=== PATIENT | male | born 1975 | race Caucasian/White ===

== ENCOUNTER 2023-02-04 10:21 | Inpatient (IN) ==
[2023-02-04] MEDS ORDERED: Tetan/Diph/Pertus SYR(Tdap) 0.5 ML SYR(BOOSTRIX) use SYR contains LATEX IM ONE (10:50)
[2023-02-04] MEDS ORDERED: Morphine 4 MG/ML VIAL (1 ml) IV ONE (10:50)
[2023-02-04] MEDS ORDERED: Buprenorp/Nalox 8-2 MG FILM SL ONE (11:04)
[2023-02-04] MEDS ORDERED: Vancomycin 1,500 MG in NS 0.9% 250 ml 250 ML IVPB ONE (13:48)
[2023-02-04] MEDS ORDERED: Lactated Ringers 1000 ml BAG 1,000 ML IV SCH (14:00)
[2023-02-04 15:02] LABS: ABS Basophils 0.1 10^3/uL (0.0-0.1); ABS Eosinophils 0.2 10^3/uL (0.0-0.5); ABS Lymphocytes 3.1 10^3/uL (1.0-4.8); ABS Monocytes 1.2 10^3/uL (0.0-1.1); ABS Neutrophils 5.4 10^3/uL (1.5-7.6); ABS Nucleated RBC 0.01 10^3/ul; Eosinophil % 1.8 %; Hematocrit 38.4 % (38-53); Hemoglobin 12.9 g/dL (13.2-16.3); Mean Corpuscular Hemoglobin 30.8 pg (27-33); Mean Corpuscular Hgb Conc 33.5 g/dL (31-36); Mean Corpuscular Volume 91.9 fL (80-97); Mean Platelet Volume 7.5 fL (7.5-11.2); Nucleated Red Blood Cells % 0.1 %/100WBC (0.0-0.8); Platelet Count 281 10^3/uL (150-450); Red Blood Count 4.18 10^6/uL (4.06-5.63); Red Cell Distribution Width 13.2 % (12-17); White Blood Count 9.9 10^3/uL (3.6-10.2)
[2023-02-04 15:20] LABS: Albumin 3.6 g/dL (3.2-5.2); Albumin/Globulin Ratio 1.3 (1-3); C Reactive Protein 84.73 mg/L (<8.01); Calcium 8.5 mg/dL (8.6-10.3); Creatinine, Serum 0.76 mg/dL (0.67-1.17); Globulin 2.7 g/dL (2-4); Potassium 4.3 mmol/L (3.5-5.0); Total Bilirubin 0.3 mg/dL (0.2-1.0); Total Protein 6.3 g/dL (6.4-8.9)
[2023-02-04] MEDS ORDERED: Silver Sulfadiazine 1% 400gm JAR TOPICAL ONE (15:50)
[2023-02-04 16:22] LABS: HIV 4th Generation Nonreactive (Nonreactive)
[2023-02-04] MEDS ORDERED: Vancomycin per Pharmacy 1 EA NOTE FOLLOW UP SCH (17:00)
[2023-02-04] MEDS ORDERED: Silver Sulfadiazine 1% 20 gm TUBE TOPICAL ONE (17:30)
[2023-02-04 17:39] LABS: Erythrocyte Sed Rate 21 mm/Hr (0-14)
[2023-02-04] MEDS: Buprenorp/Nalox 8-2 MG FILM SL SCH (17:42)
[2023-02-04] MEDS: Lactated Ringers 1000 ml BAG 1,000 ML IV SCH (17:43)
[2023-02-04] MEDS: Enoxaparin 40 MG/0.4 ML SYR SUBCUT SCH (18:32)
[2023-02-04 21:14] LABS: Hepatitis C Antibody Negative (Negative)
[2023-02-04] MEDS: Vancomycin 1000 MG in NS 0.9% 250 ML IVPB SCH (22:00)
[2023-02-05] MEDS: Lactated Ringers 1000 ml BAG 1,000 ML IV SCH (03:11)
[2023-02-05] MEDS: Vancomycin 1000 MG in NS 0.9% 250 ML IVPB SCH (06:19)
[2023-02-05 07:50] LABS: ABS Eosinophils 0.2 10^3/uL (0.0-0.5); ABS Lymphocytes 2.8 10^3/uL (1.0-4.8); ABS Monocytes 1.1 10^3/uL (0.0-1.1); ABS Neutrophils 5.5 10^3/uL (1.5-7.6); Eosinophil % 2.1 %; Hematocrit 38.7 % (38-53); Hemoglobin 12.8 g/dL (13.2-16.3); Lymphocyte % 28.9 %; Mean Corpuscular Hemoglobin 30.6 pg (27-33); Mean Corpuscular Hgb Conc 33.2 g/dL (31-36); Mean Corpuscular Volume 92.4 fL (80-97); Mean Platelet Volume 7.7 fL (7.5-11.2); Platelet Count 253 10^3/uL (150-450); Red Blood Count 4.18 10^6/uL (4.06-5.63); Red Cell Distribution Width 13.5 % (12-17); White Blood Count 9.6 10^3/uL (3.6-10.2)
[2023-02-05 08:08] LABS: Calcium 8.2 mg/dL (8.6-10.3); Creatinine, Serum 0.86 mg/dL (0.67-1.17); Magnesium 1.8 mg/dL (1.9-2.7); Potassium 4.3 mmol/L (3.5-5.0); eGFR CKD-EPI 108.8 (>60)
[2023-02-05] MEDS: Buprenorp/Nalox 8-2 MG FILM SL SCH (08:36)
[2023-02-05] MEDS ORDERED: Vancomycin Trough Check NOTE FOLLOW UP ONE (14:30)
[2023-02-05] MEDS: Enoxaparin 40 MG/0.4 ML SYR SUBCUT SCH (17:27)
[2023-02-06 06:47] LABS: Albumin 3.5 g/dL (3.2-5.2); Albumin/Globulin Ratio 1.3 (1-3); Calcium 8.7 mg/dL (8.6-10.3); Creatinine, Serum 0.87 mg/dL (0.67-1.17); Globulin 2.7 g/dL (2-4); Magnesium 1.9 mg/dL (1.9-2.7); Potassium 4.1 mmol/L (3.5-5.0); Total Bilirubin 0.2 mg/dL (0.2-1.0); Total Protein 6.2 g/dL (6.4-8.9); eGFR CKD-EPI 108.4 (>60)
[2023-02-06] MEDS: Buprenorp/Nalox 8-2 MG FILM SL SCH (08:24)
[2023-02-06] MEDS: Enoxaparin 40 MG/0.4 ML SYR SUBCUT SCH (16:59)
[2023-02-07] MEDS: Buprenorp/Nalox 8-2 MG FILM SL SCH (08:21)
[2023-02-07 13:58] VITALS: BP 140/85
== END 2023-02-07 16:00 | disposition left against medical advice (07) | DRG 935 ==
LOC: ED 10:21 → SUATTDRO 15:44 → EDHOLD 15:44 → INTOOBSV 15:44 → MED 16:21
PROVIDERS: ADMIT Student in an Organized Health Care Education/Training Program; ATTEND Internal Medicine